=== PATIENT | male | born 1985 | race Caucasian/White ===

== ENCOUNTER 2020-07-03 17:49 | Emergency (ER) | payer BC ==
[2020-07-03 18:08] VITALS: BP 153/93; PULSE 86
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
== END 2020-07-03 19:50 | disposition home or self-care (01) ==
LOC: LB.ED 17:49
DX: T54.2X1A Toxic effect of corrosive acids and acid-like substances, accidental (unintentional), initial encounter (principal); T26.92XA Corrosion of left eye and adnexa, part unspecified, initial encounter; I10 Essential (primary) hypertension; Z72.0 Tobacco use
CPT/HCPCS: 99283; A9270-GY